=== PATIENT | female | born 1965 | race Caucasian/White ===

== ENCOUNTER 2016-06-22 18:35 | Emergency (ER) | payer SELFPAY ==
[2016-06-22] MEDS ORDERED: IOPAMIDOL 300 (61%) 100 ML VIAL IV ONE (18:36)
[2016-06-22 19:26] LABS: SPECIFIC GRAVITY 1.015 (1.001-1.030); URINE BILIRUBIN NEGATIVE (NEGATIVE); URINE BLOOD TRACE (NEGATIVE); URINE GLUCOSE (UA) NEGATIVE (NEGATIVE); URINE LEUKOCYTE ESTERASE TRACE (NEGATIVE); URINE NITRITE NEGATIVE (NEGATIVE); URINE PROTEIN 1+ (NEGATIVE); URINE UROBILINOGEN NORMAL (0-1 mg/dl)
[2016-06-22 19:27] LABS: URINE APPEARANCE CLEAR; URINE COLOR YELLOW
[2016-06-22 19:29] LABS: HCG,QUALITATIVE URINE NEGATIVE
[2016-06-22 19:38] LABS: URINE BACTERIA 1+; URINE EPITHELIAL CELLS MODERATE /hpf; URINE MUCUS 1+
[2016-06-22] MEDS ORDERED: MORPHINE SULFATE 4 MG/ML SYRINGE ONE (19:58)
[2016-06-22] MEDS ORDERED: PROCHLORPERAZINE 5 MG/ML 2 ML VIAL ONE (19:58)
[2016-06-22] MEDS ORDERED: LACTATED RINGERS 1,000 ML ONE (19:58)
[2016-06-22 20:09] LABS: BASO # 0.1 K/mm3 (0.0-0.2); BASO % 0.6 % (0.2-1.0); EOS # 2.5 (0.0-0.5); EOS % 19.7 % (0.9-2.9); HEMATOCRIT 39.9 % (37.0-47.0); HEMOGLOBIN 13.3 gm/l (12.0-16.0); IMM NEUT% 0.3 % (0-1); LYMPH % 15.8 % (15-45); MEAN CELL VOLUME 91.3 fl (81.0-99.0); MEAN CORPUSCULAR HEMOGLOBIN 30.4 pg (27.0-31.0); MEAN CORPUSCULAR HGB CONC 33.3 g/dl (33.0-37.0); MEAN PLATELET VOLUME 11.2 fl (7.4-10.4); NEUT % 55.6 % (43-75); PLATELET COUNT 199 K/mm3 (130-400); RED CELL DISTRIBUTION WIDTH 12.4 % (11.5-14.5)
[2016-06-22 20:46] LABS: ALB/GLOB RATIO 1.1 (>1.0); ALBUMIN 3.7 gm/dL (3.5-5.7); CALCIUM 9.1 mg/dL (8.6-10.3); MAGNESIUM 1.6 mg/dL (1.9-2.7)
[2016-06-22] MEDS ORDERED: ONDANSETRON 4 MG/2ML 2 ML VIAL ONE (22:01)
[2016-06-22] MEDS ORDERED: SUCRALFATE 1 G/10 ML DOSE ONE (22:02)
[2016-06-22] MEDS ORDERED: FAMOTIDINE 10 MG/ML 2ML VIAL ONE (22:02)
--- NOTE | 2016-06-23 07:42 | CT ---
Exam: CT abdomen and pelvis with contrast COMPARISON: None INDICATION: Nausea, vomiting and diarrhea for one month. Periumbilical pain. History of [place] fundoplication. TECHNIQUE: CT examination of the abdomen and pelvis was obtained following the administration of 75 mL Isovue-370 intravenous contrast. FINDINGS: Food/fluid level is identified within the moderately distended stomach. There is either a moderate hiatal hernia versus less likely distended distal esophagus. The remainder of the bowel, including the appendix, is within normal limits and there is no bowel obstruction, free air or free intraperitoneal fluid. Atrophic left kidney, perhaps congenital, with a 4.5 cm cyst. There is moderate right-sided hydronephrosis, with the transition point at the UPJ suggesting UPJ obstruction. There is focal cortical scarring in the upper pole of the right kidney. Uterus is present and within normal limits. There is no adnexal mass. There is no pelvic lymphadenopathy or fluid collection. Urinary bladder unremarkable. The liver, spleen, pancreas, adrenal glands and gallbladder are unremarkable. Lung bases are clear. No worrisome osseous abnormality identified. There is multilevel facet arthropathy in the lumbar spine, most prominent at L3-4. IMPRESSION: 1. Moderate hiatal hernia versus less likely dilated lower esophagus in the setting of a [place] fundoplication. Upper GI may be helpful for further evaluation if indicated. 2. Moderate right-sided hydronephrosis, query right UPJ obstruction. There is focal cortical scarring in the upper pole of the right kidney. 3. There is a markedly atrophic left kidney which may be due to a congenital malformation. Preliminary report transmitted to the emergency department from [facility] at 2134 hours 06/22/2016.
== END 2016-06-22 22:20 | disposition home or self-care (01) ==
LOC: ED 18:35
DX: K44.9 Diaphragmatic hernia without obstruction or gangrene (principal); R10.9 Unspecified abdominal pain; R11.2 Nausea with vomiting, unspecified; R19.7 Diarrhea, unspecified; J45.909 Unspecified asthma, uncomplicated; N18.6 End stage renal disease
CPT/HCPCS: 83690; 81025; 85025; 80053; 83735; 84484; 81001; 74177; 96375 ×3; 99284 ×2; 96374; 96361; 93005; A9270; J0780; J2270; J2405; J7120; Q9967